=== PATIENT | male | born 1955 | race African-American/Black ===

== ENCOUNTER 2020-12-23 02:07 | Inpatient (IN) ==
[2020-12-23 02:40] LABS: ABG Base Excess -19.3 MMOL/L (-2.5-2.5); ABG HCO3 10.7 MMOL/L (20-26); ABG Oxygen Saturation 98.4 % (95-100); ABG PH 7.233 (7.35-7.45); ABG TCO2 6.3 MMOL/L (23-27); Allen Test Positive; Pt O2 Delivery Device Room Air
[2020-12-23 02:44] LABS: ABG PCO2 16.9 MM HG (35-48)
[2020-12-23 03:25] LABS: Basophils % 0.3 % (0.0-0.8); Hematocrit 53.7 VOL% (42.0-52.0); Hemoglobin 15.9 GM/DL (14.0-18.0); Immature Granulocytes % 0.8 %; Immature Granulocytes Absolute 0.11 #; Lymphocytes # 1.5 10*3/uL (1.4-4.0); Lymphocytes % 10.2 % (21.2-54.2); Mean Corpuscular HGB Conc 29.6 GM/DL (32-36); Mean Corpuscular Volume 94.2 FL (87-102); Mean Platelet Volume 10.7 FL (9.6-12.0); Monocytes % 7.5 % (1.7-12.7); Neutrophils % 81.2 % (38.7-73.9); Platelet Count 407 T/CUMM (130-400); White Blood Count 14.2 T/CUMM (4-12)
[2020-12-23 04:27] LABS: Alanine Aminotransferase 10 U/L (16-61); Albumin 3.1 G/DL (3.4-5.0); Alkaline Phosphatase 122 U/L (45-117); Aspartate Amino Transferase 6 U/L (0-37); Bilirubin,Total < 0.39 MG/DL (0.20-1.00); Blood Urea Nitrogen 54 MG/DL (7-18); Calcium 10.3 MG/DL (8.5-10.1); Carbon Dioxide 7 MMOL/L (21-32); Estimated Glom Filtration Rate 50 ML/MIN; Glucose 221 MG/DL (74-106); Osmolality,Calculated 300.4 MOS/KG (273-304); Potassium 3.5 MMOL/L (3.5-5.1); Sodium 140 MMOL/L (136-145); Total Protein 8.2 G/DL (6.4-8.2)
[2020-12-23] MEDS ORDERED: DEXTROSE 50% 25 GM/50 ML VIAL IV PRN ×2 (05:20)
[2020-12-23] MEDS ORDERED: SODIUM PHOSPHATE IV PRN (05:20)
[2020-12-23] MEDS ORDERED: MAGNESIUM SULF RIDER 2 GM/50 ML PREMIX IV PRN (05:20)
[2020-12-23] MEDS ORDERED: SODIUM BICARB INJ 100 MEQ in STERILE WATER INJ 400 ML IV PRN (05:20)
[2020-12-23] MEDS ORDERED: MAGNESIUM SULF RIDER 4 GM/100 ML PREMIX IV PRN (05:20)
[2020-12-23] MEDS ORDERED: INSULIN REGULAR 100 UNIT/ML IV ONE (05:20)
[2020-12-23] MEDS ORDERED: SODIUM CHLORIDE 0.9% 1,000 ML IV ONE (05:20)
[2020-12-23] MEDS ORDERED: SODIUM CHLORIDE 0.9% IV PRN (05:20)
[2020-12-23] MEDS: INSULIN REGULAR DRIP 100 ML IV SCH (06:10)
[2020-12-23] MEDS: SODIUM CHLORIDE 0.9% 1,000 ML IV SCH ×2 (06:18→08:18)
[2020-12-23] MEDS: ENOXAPARIN 40 MG/0.4 ML SYRINGE SUBCUT SCH (06:24)
[2020-12-23 06:50] LABS: Bilirubin,Urine Negative (Negative); Blood, Urine Small mg/dL (Negative); Glucose,Urine (UA) Negative (Negative); Ketones,Urine 5 mg/dL (Negative); Mucus,Urine Many /LPF (Occasional); Nitrite,Urine Negative (Negative); Protein,Urine 100 MG/DL; Squamous Epithelial Cell,Urine Few /HPF (0-10); Urine Appearance CLOUDY (Clear); Urine Color Yellow (Yellow); Urine Urobilinogen < 2.0 EU/DL (0.2-1.0)
[2020-12-23] MEDS: ONDANSETRON 4 MG/2 ML VIAL IV PRN ×3 (06:54→23:24)
[2020-12-23 08:46] LABS: ABG Base Excess -16.9 MMOL/L (-2.5-2.5); ABG Oxygen Saturation 98.9 % (95-100); ABG PH 7.283 (7.35-7.45); ABG TCO2 7.6 MMOL/L (23-27)
[2020-12-23 08:49] LABS: ABG PCO2 17.9 MM HG (35-48)
[2020-12-23 10:07] LABS: ABG Base Excess -17.3 MMOL/L (-2.5-2.5); ABG HCO3 11.8 MMOL/L (20-26); ABG Oxygen Saturation 98.6 % (95-100); ABG PH 7.275 (7.35-7.45); ABG TCO2 7.4 MMOL/L (23-27); Pt O2 Delivery Device Room Air
[2020-12-23 10:09] LABS: ABG PCO2 17.7 MM HG (35-48)
[2020-12-23] MEDS ORDERED: SODIUM CHLORIDE 0.9% 1,000 ML IV SCH (10:30)
[2020-12-23] MEDS: DEXTROSE 5% NACL 0.45% 1,000 ML IV SCH ×4 (11:02→23:19)
[2020-12-23 14:10] LABS: ABG Base Excess -16.7 MMOL/L (-2.5-2.5); ABG HCO3 12.2 MMOL/L (20-26); ABG Oxygen Saturation 98.7 % (95-100); ABG PH 7.283 (7.35-7.45); ABG TCO2 7.8 MMOL/L (23-27); Pt O2 Delivery Device Room Air
[2020-12-23 14:12] LABS: ABG PCO2 18.4 MM HG (35-48)
[2020-12-23 14:12] LABS: Calcium 9.3 MG/DL (8.5-10.1); Osmolality,Calculated 301.7 MOS/KG (273-304); Potassium 3.6 MMOL/L (3.5-5.1)
[2020-12-23 15:14] LABS: Osmolality,Calculated 305.4 MOS/KG (273-304); Potassium 3.4 MMOL/L (3.5-5.1)
[2020-12-23] MEDS: DEXT 5% NACL 0.45% KCL 10 MEQ 10 MEQ/1,000 ML BAG IV SCH ×2 (15:32→21:05)
[2020-12-23 20:43] LABS: Calcium 9.4 MG/DL (8.5-10.1); Osmolality,Calculated 296.6 MOS/KG (273-304); Potassium 3.4 MMOL/L (3.5-5.1)
[2020-12-23] MEDS ORDERED: MORPHINE 2 MG/1 ML SYRINGE IV STA (23:20)
[2020-12-23 23:33] LABS: ABG HCO3 10.1 MMOL/L (20-26); ABG Oxygen Saturation 98.3 % (95-100); ABG PH 7.231 (7.35-7.45); ABG TCO2 5.9 MMOL/L (23-27)
[2020-12-23 23:39] LABS: ABG PCO2 15.5 MM HG (35-48)
[2020-12-24] MEDS: DEXT 5% NACL 0.45% KCL 10 MEQ 10 MEQ/1,000 ML BAG IV SCH ×3 (00:48→08:06)
[2020-12-24] MEDS: ONDANSETRON 4 MG/2 ML VIAL IV PRN (03:30)
[2020-12-24] MEDS ORDERED: MORPHINE 2 MG/1 ML SYRINGE IV PRN (03:36)
[2020-12-24] MEDS: GABAPENTIN 600 MG TABLET PO SCH ×4 (04:35→21:07)
[2020-12-24 04:46] LABS: Basophils % 0.1 % (0.0-0.8); Immature Granulocytes Absolute 0.22 #; Lymphocytes # 1.3 10*3/uL (1.4-4.0); Lymphocytes % 5.7 % (21.2-54.2); Mean Corpuscular HGB Conc 30.8 GM/DL (32-36); Mean Corpuscular Volume 90.5 FL (87-102); Mean Platelet Volume 10.7 FL (9.6-12.0); Neutrophils % 87.2 % (38.7-73.9); Platelet Count 391 T/CUMM (130-400); Red Blood Count 4.31 MC/CUMM (3.8-5.5); Red Cell Distribution Width 14.9 % (9.3-17.3); White Blood Count 22.9 T/CUMM (4-12)
[2020-12-24 05:02] LABS: Hypochromasia Slight; Lymphocytes 6 % (20-55); Microcytosis Slight; Ovalocytes Slight; Platelet Estimate Adequate; Segmented Neutrophils 87 % (50-85); Total Cells Counted 100
[2020-12-24 05:08] LABS: Osmolality,Calculated 298.1 MOS/KG (273-304); Potassium 2.8 MMOL/L (3.5-5.1)
[2020-12-24] MEDS ORDERED: SODIUM BICARBONATE 50 MEQ/50 ML VIAL IV ONE ×2 (05:27→05:28)
[2020-12-24] MEDS ORDERED: SODIUM BICARB INJ 100 MEQ in SODIUM CHLORIDE 0.45% 1,000 ML IV SCH (06:00)
[2020-12-24] MEDS: DEXTROSE 5% NACL 0.45% 1,000 ML IV SCH ×3 (07:37→10:05)
[2020-12-24] MEDS: INSULIN REGULAR DRIP 100 ML IV SCH (07:41)
[2020-12-24] MEDS: SODIUM CHLORIDE 0.45% 1,000 ML IV SCH (07:55)
[2020-12-24] MEDS: POTASSIUM CHLORIDE RIDER 10 MEQ/100 ML PREMIX IV PRN ×5 (08:08→13:55)
[2020-12-24] MEDS: ENOXAPARIN 40 MG/0.4 ML SYRINGE SUBCUT SCH (09:38)
[2020-12-24] MEDS ORDERED: POTASSIUM PHOSPHATE 30 MMOL in SODIUM CHLORIDE 0.9% 250 ML IV ONE (11:00)
[2020-12-24 11:25] LABS: Calcium 9.3 MG/DL (8.5-10.1); Osmolality,Calculated 292.6 MOS/KG (273-304); Potassium 2.6 MMOL/L (3.5-5.1)
[2020-12-24] MEDS: DEXT 5% LACT RING KCL 20 MEQ 20 MEQ/1,000 ML BAG IV SCH ×2 (12:01→19:30)
[2020-12-24] MEDS: INSULIN NPH 100 UNIT/ML SUBCUT SCH ×2 (12:18→16:38)
[2020-12-24] MEDS: POTASSIUM CHLORIDE 20 MEQ TABLET PO SCH ×3 (16:38→23:33)
[2020-12-24 17:01] LABS: Calcium 8.8 MG/DL (8.5-10.1); Osmolality,Calculated 289.7 MOS/KG (273-304); Potassium 2.8 MMOL/L (3.5-5.1)
[2020-12-24 21:23] LABS: Calcium 8.8 MG/DL (8.5-10.1); Osmolality,Calculated 288.8 MOS/KG (273-304); Potassium 3.2 MMOL/L (3.5-5.1)
[2020-12-25] MEDS: DEXT 5% LACT RING KCL 20 MEQ 20 MEQ/1,000 ML BAG IV SCH ×3 (02:16→19:59)
[2020-12-25 02:57] LABS: Calcium 8.7 MG/DL (8.5-10.1); Osmolality,Calculated 281.4 MOS/KG (273-304); Potassium 3.7 MMOL/L (3.5-5.1)
[2020-12-25] MEDS ORDERED: POTASSIUM CHLORIDE 20 MEQ TABLET PO PRN (03:36)
[2020-12-25] MEDS: POTASSIUM CHLORIDE 20 MEQ TABLET PO SCH ×5 (04:10→20:00)
[2020-12-25 04:35] LABS: ABG Base Excess -11.2 MMOL/L (-2.5-2.5); ABG HCO3 15.6 MMOL/L (20-26); ABG Oxygen Saturation 98.4 % (95-100); ABG PCO2 23.6 MM HG (35-48); ABG PH 7.354 (7.35-7.45); ABG TCO2 12.1 MMOL/L (23-27)
[2020-12-25] MEDS: ENOXAPARIN 40 MG/0.4 ML SYRINGE SUBCUT SCH (06:31)
[2020-12-25 07:11] LABS: Basophils % 0.1 % (0.0-0.8); Eosinophils % 0.1 % (0.00-10.9); Hematocrit 37.7 VOL% (42.0-52.0); Hemoglobin 11.4 GM/DL (14.0-18.0); Immature Granulocytes % 0.6 %; Immature Granulocytes Absolute 0.09 #; Lymphocytes # 2.3 10*3/uL (1.4-4.0); Lymphocytes % 15.3 % (21.2-54.2); Mean Corpuscular HGB Conc 30.2 GM/DL (32-36); Mean Corpuscular Volume 94.3 FL (87-102); Mean Platelet Volume 10.8 FL (9.6-12.0); Monocytes % 8.1 % (1.7-12.7); Neutrophils % 75.8 % (38.7-73.9); Platelet Count 237 T/CUMM (130-400); Red Cell Distribution Width 15.3 % (9.3-17.3); White Blood Count 14.7 T/CUMM (4-12)
[2020-12-25 07:36] LABS: Calcium 8.9 MG/DL (8.5-10.1); Osmolality,Calculated 276.7 MOS/KG (273-304); Potassium 3.5 MMOL/L (3.5-5.1)
[2020-12-25] MEDS: INSULIN REGULAR DRIP 100 ML IV SCH (07:44)
[2020-12-25] MEDS: GABAPENTIN 600 MG TABLET PO SCH ×3 (08:30→20:00)
[2020-12-25] MEDS: PANTOPRAZOLE 40 MG TABLET PO SCH (08:30)
[2020-12-25] MEDS: INSULIN NPH 100 UNIT/ML SUBCUT SCH ×2 (08:31→17:53)
[2020-12-25] MEDS: ASPIRIN EC 81 MG TABLET PO SCH (08:31)
[2020-12-25] MEDS ORDERED: MAGNESIUM SULF RIDER 4 GM/100 ML PREMIX IV ONE (09:00)
[2020-12-25] MEDS: INSULIN LISPRO 100 UNIT/ML SUBCUT SCH ×3 (12:04→21:18)
[2020-12-25 13:27] LABS: Osmolality,Calculated 278.5 MOS/KG (273-304); Potassium 3.6 MMOL/L (3.5-5.1)
[2020-12-26] MEDS: DEXT 5% LACT RING KCL 20 MEQ 20 MEQ/1,000 ML BAG IV SCH ×5 (00:05→22:03)
[2020-12-26] MEDS: INSULIN LISPRO 100 UNIT/ML SUBCUT SCH ×7 (00:40→23:45)
[2020-12-26] MEDS: ONDANSETRON 4 MG/2 ML VIAL IV PRN (03:45)
[2020-12-26] MEDS: ENOXAPARIN 40 MG/0.4 ML SYRINGE SUBCUT SCH (06:24)
[2020-12-26 07:04] LABS: Calcium 8.6 MG/DL (8.5-10.1); Osmolality,Calculated 280.4 MOS/KG (273-304); Potassium 4.7 MMOL/L (3.5-5.1)
[2020-12-26 07:25] LABS: Basophils % 0.1 % (0.0-0.8); Eosinophils % 0.1 % (0.00-10.9); Hematocrit 28.9 VOL% (42.0-52.0); Hemoglobin 9.2 GM/DL (14.0-18.0); Immature Granulocytes % 0.6 %; Immature Granulocytes Absolute 0.06 #; Lymphocytes # 1.9 10*3/uL (1.4-4.0); Lymphocytes % 18.2 % (21.2-54.2); Mean Corpuscular HGB Conc 31.8 GM/DL (32-36); Mean Corpuscular Volume 88.1 FL (87-102); Mean Platelet Volume 10.8 FL (9.6-12.0); Monocytes % 6.5 % (1.7-12.7); Neutrophils % 74.5 % (38.7-73.9); Platelet Count 271 T/CUMM (130-400); Red Blood Count 3.28 MC/CUMM (3.8-5.5)
[2020-12-26 07:28] LABS: White Blood Count 10.3 T/CUMM (4-12)
[2020-12-26] MEDS: PANTOPRAZOLE 40 MG TABLET PO SCH (08:39)
[2020-12-26] MEDS: GABAPENTIN 600 MG TABLET PO SCH ×3 (08:39→21:15)
[2020-12-26] MEDS: ASPIRIN EC 81 MG TABLET PO SCH (08:39)
[2020-12-26] MEDS: INSULIN NPH 100 UNIT/ML SUBCUT SCH ×2 (09:09→17:34)
[2020-12-27] MEDS: INSULIN LISPRO 100 UNIT/ML SUBCUT SCH ×2 (05:16→09:53)
[2020-12-27] MEDS: ENOXAPARIN 40 MG/0.4 ML SYRINGE SUBCUT SCH (05:17)
[2020-12-27] MEDS: DEXT 5% LACT RING KCL 20 MEQ 20 MEQ/1,000 ML BAG IV SCH (05:17)
[2020-12-27 05:49] LABS: Calcium 8.9 MG/DL (8.5-10.1); Potassium 3.4 MMOL/L (3.5-5.1)
[2020-12-27 06:20] LABS: Basophils % 0.1 % (0.0-0.8); Eosinophils % 0.3 % (0.00-10.9); Hematocrit 30.1 VOL% (42.0-52.0); Hemoglobin 9.5 GM/DL (14.0-18.0); Immature Granulocytes % 0.9 %; Lymphocytes % 18.3 % (21.2-54.2); Mean Corpuscular HGB Conc 31.6 GM/DL (32-36); Mean Corpuscular Volume 87.8 FL (87-102); Mean Platelet Volume 10.7 FL (9.6-12.0); Monocytes % 7.4 % (1.7-12.7); Platelet Count 291 T/CUMM (130-400); Red Blood Count 3.43 MC/CUMM (3.8-5.5); Red Cell Distribution Width 14.9 % (9.3-17.3); White Blood Count 10.9 T/CUMM (4-12)
[2020-12-27 07:57] VITALS: BP 126/82
[2020-12-27] MEDS: GABAPENTIN 600 MG TABLET PO SCH (08:47)
[2020-12-27] MEDS: PANTOPRAZOLE 40 MG TABLET PO SCH (08:47)
[2020-12-27] MEDS: ASPIRIN EC 81 MG TABLET PO SCH (08:48)
[2020-12-27] MEDS ORDERED: POTASSIUM CHLORIDE 20 MEQ TABLET PO ONE (09:00)
[2020-12-27] MEDS ORDERED: MAGNESIUM SULF RIDER 2 GM/50 ML PREMIX IV ONE (09:00)
[2020-12-27] MEDS: INSULIN NPH 100 UNIT/ML SUBCUT SCH (10:12)
== END 2020-12-27 11:40 | disposition home or self-care (01) | DRG 638 ==
LOC: N.ED 02:07 → N.EDINP 05:20 → SUATTDRO 05:20 → N.ICU 12-24 01:03 → N.5E 12-25 09:34
PROVIDERS: ADMIT Internal Medicine; ATTEND Hospitalist